=== PATIENT | male | born 1965 | race Caucasian/White ===

== ENCOUNTER 2019-09-30 15:50 | Emergency (ER) | payer OTHER ==
[2019-09-30] MEDS ORDERED: OPTH IRRIGATION SOLUTION 120 ML BTL ONE (15:52)
[2019-09-30] MEDS ORDERED: FLUORESCEIN SODIUM 1 STRIP TEST ONE (15:52)
[2019-09-30] MEDS ORDERED: DIPH,PERTUSS(ACELL),TET VAC/PF 0.5 ML DISP.SYRIN IM ONE (15:52)
[2019-09-30] MEDS ORDERED: TETRACAINE 0.5% OPTH 5 ML BOTTLE OS ONE (15:52)
[2019-09-30] MEDS ORDERED: FLUORESCEIN SODIUM 1 STRIP TEST OS ONE (15:54)
[2019-09-30] MEDS ORDERED: OPTH IRRIGATION SOLUTION 120 ML BTL OS ONE (15:54)
--- NOTE | 2019-09-30 16:04 | ED Physician Documentation ---
Eye Problem - HISTORIAN Historian: patient - HPI Chief Complaint: Eye Problems (FB in Left Eye) Additional Information: 53 year old male presents with FB to the left eye; noticed it yesterday- off/on irritation. Patient [place] cutting wood and [place] and felt something go into his left eye; tried to flush with no success. Onset: days ago Associated symptoms: burining, itching, foreign body Location: left eye Severity: moderate Apparent Injury: yes Context: foreign body Eyes Irrigated With:: saline Where: home - ROS CONST: no problems CVS/RESP: none EYES/ENT: none - PAST HX Past History: none Immunizations: UTD. denies: tetanus Allergies/Adverse Reactions: Allergies Allergy/AdvReac Type Severity Reaction Status Date / Time No Known Allergies Allergy Verified 09/30/19 16:04 Home Medications: Ambulatory Orders Medication Instructions Recorded NK 09/30/19 - SOCIAL HX Smoking History: non-smoker Alcohol Use: none Drug Use: none - FAMILY HX Family History: none - REVIEWED ASSESSMENTS Nursing Assessment Reviewed: Yes Vitals Reviewed: Yes Procedures - Eye Procedure Alcaine Drops Administered: Yes Eye FB Removal: removal w/ cotton swab, removal w/ needle Eye Irrigated w/ Saline (ccs): 20 Cyclogel 2 Drops Administered: left eye Antibiotic Oinment/Drps Admin: left eye Progress: patient tolerated well ED Results Lab/Radiology - Orders Orders: ED Orders Category Date Time Status Diph,Pertuss(Acell),Tet Vac/Pf [Adacel] Med 09/30/19 15:52 Discontinued 0.5 ml IM .ONCE ONE Fluorescein Sodium [Bioglo Test Strip] Med 09/30/19 15:52 Discontinued 1 strip .ROUTE .STK-MED ONE Fluorescein Sodium [Bioglo Test Strip] Med 09/30/19 15:54 Once 1 strip OS NOW ONE Opth Irrigation Solution [Eye Wash Solution] Med 09/30/19 15:52 Discontinued 120 ml .ROUTE .STK-MED ONE Opth Irrigation Solution [Eye Wash Solution] Med 09/30/19 15:54 Once 120 ml OS NOW ONE Tetracaine 0.5% Opth [Pontocaine Pf 0.5% Opth] Med 09/30/19 15:52 Discontinued 2 drop OS NOW ONE Eye Problem Physical Exam - Physical Exam General Appearance: no acute distress, alert Visual Acuity: see nursing assessment Eyelids: everted for exam (L), erythema (L) Conjunctiva and Sclera: injected (L) Corneas: foreign body (L), examined with fluorescein (L) EOM: intact Pupils: equal Anterior Chambers: nml inspection Head/ENT: nml inspection, pharynx nml Skin: nml color, warm, skin intact Neuro/Psych: oriented x3, neuro intact, mood/affect nml Discharge Clincal Impression: Foreign body of left eye Referrals: Georgina Lima MD [Primary Care Provider] - 2 Days Additional Instructions: Use antibiotic as directed (Polymxin B ophthalmic drops; 1 drop in the affected eye every 3 hours for 7 days Follow up with PCP as needed Condition: Good Disposition: 01 HOME, SELF-CARE Decision to Admit: NO Decision Time: 16:36
[2019-09-30] MEDS ORDERED: POLYMYXIN B SULF/TRIMETHOPRIM OPHTH 15 ML OS ONE (16:06)
[2019-09-30 16:15] VITALS: BP 158/96
== END 2019-09-30 16:14 | disposition home or self-care (01) ==
LOC: ED 15:50
DX: T15.92XA Foreign body on external eye, part unspecified, left eye, initial encounter (principal)
CPT/HCPCS: 65205; 90715; 99282